=== PATIENT | female | born 1975 | race African-American/Black ===

== ENCOUNTER 2018-11-15 08:44 | Emergency (ER) | payer BC ==
[2018-11-15] MEDS ORDERED: FAMOTIDINE 20 MG TAB ONE (09:34)
[2018-11-15] MEDS ORDERED: METHYLPREDNISOLONE 125 MG INJ ONE (09:34)
[2018-11-15] MEDS ORDERED: DIPHENHYDRAMINE 25 MG TAB/CAP ONE (09:34)
--- NOTE | 2018-11-15 09:53 | ER ---
Nurse's Notes [facility] Name: Ja Karimi Age: 43 yrs Sex: Female : 1975 Arrival Date: 11/15/2018 Time: 08:46 Bed 7 Private MD: Diagnosis: Allergy, unspecified Presentation: 11/15 08:55 Presenting complaint: Patient states: rash to bilateral upper and lower extremities ss with facial swelling that began yesterday. Pt reports today the rash has gone away, but she still has swelling in her face. Pt reports she completed a course of Bactrim 2 days ago. Transition of care: patient was not received from another setting of care. Onset of symptoms was November 14, 2018. Risk Assessment: Do you want to hurt yourself or someone else? Patient reports no desire to harm self or others. Initial Sepsis Screen: Does the patient meet any 2 criteria? No. Patient's initial sepsis screen is negative. Does the patient have a suspected source of infection? No. Patient's initial sepsis screen is negative. Care prior to arrival: None. 08:55 Method Of Arrival: Ambulatory ss 08:55 Acuity: ARACELI 3 ss Historical: - Allergies: 08:57 No Known Allergies; ss - Home Meds: 08:57 None [Active]; ss - PMHx: 08:57 None; ss - PSHx: 08:57 None; ss - Immunization history:: Adult Immunizations up to date. - Social history:: Smoking status: Patient/guardian denies using tobacco. - Ebola Screening: : Patient denies exposure to infectious person Patient denies travel to an Ebola-affected area in the 21 days before illness onset. Screenin:55 Abuse screen: Denies threats or abuse. Denies injuries from another. Nutritional sv screening: No deficits noted. Tuberculosis screening: No symptoms or risk factors identified. Fall Risk None identified. Assessment: 08:56 General: Appears in no apparent distress. uncomfortable, slender, well groomed, well sv developed, Behavior is calm, cooperative, appropriate for age. Neuro: Level of Consciousness is awake, alert, obeys commands, Oriented to person, place, time, situation, Moves all extremities. Full function Gait is steady, Speech is normal. Respiratory: Respiratory effort is even, unlabored, Respiratory pattern is regular, symmetrical. EENT: Lid(s) swelling noted bilaterally. Derm: Skin is pink, warm \T\ dry. Musculoskeletal: Range of motion: intact in all extremities, Swelling present in right eye, left eye and mouth. Vital Signs: 08:57 BP 114 / 50; Pulse 67; Resp 16; Temp 99.3(TE); Pulse Ox 100% on R/A; Weight 54.43 kg; ss Height 5 ft. 0 in. (152.40 cm); Pain 0/10; 08:57 Body Mass Index 23.44 (54.43 kg, 152.40 cm) ED Course: 08:46 Patient arrived in ED. rg4 08:55 Bruna Caldera, RN is Primary Nurse. sv 08:55 Arm band placed on. sv 08:55 Patient has correct armband on for positive identification. Bed in low position. Call sv light in reach. Door closed. Head of bed elevated. 08:56 Triage completed. ss 08:56 Jacoby Alfaro MD is Attending Physician. kdr 08:57 Awaiting ED provider evaluation. sv Administered Medications: 09:35 Drug: Benadryl 25 mg Route: PO; ss 09:35 Drug: Pepcid 20 mg Route: PO; ss 09:35 Drug: SOLU-Medrol 125 mg Route: IM; Site: right gluteus; ss 09:42 CANCELLED (Other Intervention Used): SOLU-Medrol 125 mg IVP once ss Outcome: 09:52 Discharge ordered by . kdr 10:09 Patient left the ED. sg Signatures: Bruna Caldera RN RN Jd Fish RN RN Jacoby Alfaro MD MD [facility] Amy Danielle RN RN Ruby Stiles rg4
--- NOTE | 2018-11-15 09:53 | EDPHYS ---
Physician Documentation [facility] Name: Ja Karimi Age: 43 yrs Sex: Female : 1975 Arrival Date: 11/15/2018 Time: 08:46 Bed 7 Private MD: ED Physician Jacoby Alfaro HPI: 11/15 09:04 This 43 yrs old Black Female presents to ER via Ambulatory with complaints of Lips kdr Swelling. 09:04 The patient presents with diffuse swelling, itching, rash, swelling of the lips. Onset: kdr The symptoms/episode began/occurred last night. Associated signs and symptoms: Pertinent positives:. Possible causes: antibiotics, Bactrim, The patient just finished a seven day course of Bactrim for UTI - had a full days yesterday. At home the patient or guardian has treated the symptoms with Benadryl. Severity of symptoms: At their worst the symptoms were mild in the emergency department the symptoms are worse. The patient has not experienced similar symptoms in the past. The patient has not recently seen a physician. Historical: - Allergies: 08:57 No Known Allergies; ss - Home Meds: 08:57 None [Active]; ss - PMHx: 08:57 None; ss - PSHx: 08:57 None; ss - Immunization history:: Adult Immunizations up to date. - Social history:: Smoking status: Patient/guardian denies using tobacco. - Ebola Screening: : Patient denies exposure to infectious person Patient denies travel to an Ebola-affected area in the 21 days before illness onset. ROS: 09:04 Constitutional: Negative for fever, chills, and weight loss, Eyes: Negative for injury, kdr pain, redness, and discharge, ENT: Negative for injury, pain, and discharge, Neck: Negative for injury, pain, and swelling, Cardiovascular: Negative for chest pain, palpitations, and edema, Respiratory: Negative for shortness of breath, cough, wheezing, and pleuritic chest pain, Abdomen/GI: Negative for abdominal pain, nausea, vomiting, diarrhea, and constipation, Back: Negative for injury and pain, : Negative for injury, bleeding, discharge, and swelling, MS/Extremity: Negative for injury and deformity, Neuro: Negative for headache, weakness, numbness, tingling, and seizure activity. Psych: Negative for depression, anxiety, suicide ideation, homicidal ideation, and hallucinations, Endocrine: Negative for neck swelling, polydipsia, polyuria, polyphagia, and marked weight changes, Hematologic/Lymphatic: Negative for swollen nodes, abnormal bleeding, and unusual bruising. 09:04 Skin: Positive for rash. Exam: 09:04 Constitutional: This is a well developed, well nourished patient who is awake, alert, kdr and in no acute distress. Head/Face: Normocephalic, atraumatic. The patient does have swelling to the left side her face - upper and lower including lips. Eyes: Pupils equal round and reactive to light, extra-ocular motions intact. Lids and lashes normal. Conjunctiva and sclera are non-icteric and not injected. Cornea within normal limits. Periorbital areas with no swelling, redness, or edema. Neck: Trachea midline, no thyromegaly or masses palpated, and no cervical lymphadenopathy. Supple, full range of motion without nuchal rigidity, or vertebral point tenderness. No Meningismus. Chest/axilla: Normal chest wall appearance and motion. Nontender with no deformity. No lesions are appreciated. Cardiovascular: Regular rate and rhythm with a normal S1 and S2. No gallops, murmurs, or rubs. Normal PMI, no JVD. No pulse deficits. Respiratory: Lungs have equal breath sounds bilaterally, clear to auscultation and percussion. No rales, rhonchi or wheezes noted. No increased work of breathing, no retractions or nasal flaring. Abdomen/GI: Soft, non-tender, with normal bowel sounds. No distension or tympany. No guarding or rebound. No evidence of tenderness throughout. Back: No spinal tenderness. No costovertebral tenderness. Full range of motion. MS/ Extremity: Pulses equal, no cyanosis. Neurovascular intact. Full, normal range of motion. Neuro: Awake and alert, GCS 15, oriented to person, place, time, and situation. Cranial nerves II-XII grossly intact. Motor strength 5/5 in all extremities. Sensory grossly intact. Cerebellar exam normal. Normal gait. Psych: Awake, alert, with orientation to person, place and time. Behavior, mood, and affect are within normal limits. 09:04 Neck: No stridor. 09:04 Skin: rash a mild rash is noted, rash can be described as macular, Largely resolved at the time of exam - but itchy and rough - typical drug rash appearance. Vital Signs: 08:57 BP 114 / 50; Pulse 67; Resp 16; Temp 99.3(TE); Pulse Ox 100% on R/A; Weight 54.43 kg; ss Height 5 ft. 0 in. (152.40 cm); Pain 0/10; 08:57 Body Mass Index 23.44 (54.43 kg, 152.40 cm) ss MDM: 09:52 Patient medically screened. kdr 09:56 Data reviewed: vital signs, nurses notes, lab test result(s). Counseling: I had a kdr detailed discussion with the patient and/or guardian regarding: the historical points, exam findings, and any diagnostic results supporting the discharge/admit diagnosis, radiology results, the need for outpatient follow up. Administered Medications: 09:35 Drug: Benadryl 25 mg Route: PO; ss 09:35 Drug: Pepcid 20 mg Route: PO; ss 09:35 Drug: SOLU-Medrol 125 mg Route: IM; Site: right gluteus; ss 09:42 CANCELLED (Other Intervention Used): SOLU-Medrol 125 mg IVP once ss Disposition: 11/15/18 09:52 Discharged to Home. Impression: Allergy, unspecified. - Condition is Stable. - Discharge Instructions: Allergies, Svqa-vn-Wter. - Prescriptions for Benadryl 25 mg Oral Capsule - take 1 capsule by ORAL route every 6 hours As needed; 30 tablet. Pepcid 20 mg Oral Tablet - take 1 tablet by ORAL route every 12 hours for 5 days; 10 tablet. Medrol (Harjit) 4 mg Oral Tablets, Dose Pack - take 1 tablet by ORAL route as directed - follow package instructions; 1 packet. - Work release form, Medication Reconciliation Form, Thank You Letter form. - Follow up: Private Physician; When: 2 - 3 days; Reason: If symptoms return, Further diagnostic work-up, Recheck today's complaints, Continuance of care, Re-evaluation by your physician. - Problem is new. - Symptoms have improved. - Notes: Be careful with Sulfa drugs/Bactrim Signatures: Jd Fish RN RN Jacoby Alfaro MD MD [facility] Amy Danielle RN RN ss Corrections: (The following items were deleted from the chart) 09:42 09:04 SOLU-Medrol 125 mg IVP once ordered. kdr ss 10:09 09:52 11/15/2018 09:52 Discharged to Home. Impression: Allergy, unspecified. Condition sg is Stable. Forms are Medication Reconciliation Form, Thank You Letter, Antibiotic Education, Prescription Opioid Use. Follow up: Private Physician; When: 2 - 3 days; Reason: If symptoms return, Further diagnostic work-up, Recheck today's complaints, Continuance of care, Re-evaluation by your physician. Problem is new. Symptoms have improved. kdr
[2018-11-15 10:21] VITALS: BP 114/50; TEMP 99.3; O2SAT 100
== END 2018-11-15 10:09 | disposition home or self-care (01) ==
LOC: ER 08:44
DX: R21 Rash and other nonspecific skin eruption (principal); Z91.09 Other allergy status, other than to drugs and biological substances
CPT/HCPCS: 96372; 99283; J2930

== ENCOUNTER 2019-05-27 13:10 | Emergency (ER) | payer BC, SELFPAY ==
--- OUTSIDE RECORDS SUMMARY | 2019-05-27 13:13 | XMS REPORT ---
:1975 Author Organization [employer] Care Team Providers Name Role Phone Tiffani Varela Provider Role Unavailable Allergies No Known Allergies Problems Problem Type Condition Code Onset Dates Condition Status Assessment Urinary tract infection, site not N39.0 Active specified Assessment Hematuria, unspecified R31.9 Active Medications Medication Code System Code Instructions Start Date End Date Status Dosage Bactrim [facility] [id number] 800-160 MG Orally November 05, November 12, Active 1 tablet Twice a day 2018 2018 Results No Known Results Summary Purpose [employer] Submission
--- OUTSIDE RECORDS SUMMARY | 2019-05-27 13:13 | XMS REPORT ---
:1975 Author Organization [employer] Care Team Providers Name Role Phone Ramon Tomas Provider Role Unavailable Allergies No Known Allergies Problems Problem Type Condition Code Onset Dates Condition Status Assessment Asymptomatic microscopic hematuria R31.21 Active Medications No Known Medications Results No Known Results Summary Purpose [employer] Submission
--- OUTSIDE RECORDS SUMMARY | 2019-05-27 13:13 | XMS REPORT ---
:1975 Author Organization [employer] Care Team Providers Name Role Phone Tiffani Varela Provider Role Unavailable Allergies, Adverse Reactions, Alerts Substance Reaction Event Type N.K.D.A. Info Not Available Non Drug Allergy Problems Problem Type Condition Code Onset Dates Condition Status Assessment Hematuria, unspecified type R31.9 Active Medications No Known Medications Results No Known Results Summary Purpose [employer] Submission
[2019-05-27] MEDS ORDERED: LIDOCAINE 2% MPF 5 ML VIAL ONE (14:26)
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
[2019-05-27] MEDS ORDERED: TRAMADOL HCL 50 MG TAB ONE (16:01)
[2019-05-27 16:30] VITALS: BP 111/64; TEMP 98.1; O2SAT 99
== END 2019-05-27 16:23 | disposition home or self-care (01) ==
LOC: ER 13:10
PROC: 0CQ1XZZ Repair Lower Lip, External Approach (ICD-10-PCS; principal; 2019-05-27)
DX: S00.531A Contusion of lip, initial encounter (principal); V43.52XA Car driver injured in collision with other type car in traffic accident, initial encounter; Y93.89 Activity, other specified; Y92.410 Unspecified street and highway as the place of occurrence of the external cause
CPT/HCPCS: 99284

== ENCOUNTER 2019-06-02 13:25 | Emergency (ER) | payer SELFPAY ==
--- OUTSIDE RECORDS SUMMARY | 2019-06-02 13:27 | XMS REPORT ---
:1975 Author Organization eClinicalWorks Care Team Providers Name Role Phone Tiffani Varela Provider Role Unavailable Allergies No Known Allergies Problems Problem Type Condition Code Onset Dates Condition Status Assessment Urinary tract infection, site not N39.0 Active specified Assessment Hematuria, unspecified R31.9 Active Medications Medication Code System Code Instructions Start Date End Date Status Dosage Bactrim DS [facility] [id number] 800-160 MG Orally November 05, November 12, Active 1 tablet Twice a day 2018 2018 Results No Known Results Summary Purpose eClinicalWorks Submission
--- OUTSIDE RECORDS SUMMARY | 2019-06-02 13:27 | XMS REPORT ---
:1975 Author Organization eClinicalWorks Care Team Providers Name Role Phone Tiffani Varela Provider Role Unavailable Allergies, Adverse Reactions, Alerts Substance Reaction Event Type N.K.D.A. Info Not Available Non Drug Allergy Problems Problem Type Condition Code Onset Dates Condition Status Assessment Hematuria, unspecified type R31.9 Active Medications No Known Medications Results No Known Results Summary Purpose [employer] Submission
--- NOTE | 2019-06-02 14:31 | RAD REPORT ---
EXAM DESCRIPTION: Gege Desai (2 Views)06/02/2019 2:16 pm CLINICAL HISTORY: Chest pain COMPARISON: None FINDINGS: The lungs appear clear of acute infiltrate. The heart is normal size IMPRESSION: No acute abnormalities displayed
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
[2019-06-02 18:47] VITALS: BP 142/65; TEMP 99; O2SAT 95
== END 2019-06-02 14:54 | disposition home or self-care (01) ==
LOC: ER 13:25
DX: M25.512 Pain in left shoulder (principal); R07.89 Other chest pain; V43.52XA Car driver injured in collision with other type car in traffic accident, initial encounter; Y93.89 Activity, other specified; Y92.410 Unspecified street and highway as the place of occurrence of the external cause
CPT/HCPCS: 71046; 99284

== ENCOUNTER 2023-10-23 16:49 | Emergency (ER) | payer BC, SELFPAY ==
--- OUTSIDE RECORDS SUMMARY | 2023-10-23 16:51 | XMS REPORT | Continuity of Care Document ---
Author Name Unknown Address [address] [facility] [id number] [facility] thconnect Address [address] [facility] [address] [place] [address] Care Team Providers Care Rug Measurer Name Role Phone Bridget Varela Attending Clinician Unavailable [id number] Attending Clinician Unavaila ble [id number] Admitting Clinician Unavaila ble Problems Condition Name Condition Details Condition Category Status Onset Date Resolution Date Last Treatment Date Treating Clinician Comments Source Hematuria, unspecifie d Hematuria, unspecifie d Diagnosis Active [facility] Urinary tract infection, site not specified Urinary tract infection, site not specified Diagnosis Active [facility] Medications Ordered Medication Name Filled Medication Name Start Date Stop Date Current Medication? Ordering Clinician Indication Dosage Frequency Signature (SIG) Comments Components Source Bactrim DS Bactrim DS 2018-11-05 00:00: 00 11-12 00:00 :00 No Tiffani Nichole 1 tablet Comm on [facility] Encounters Start Date/Time End Date/Time Encounter Type Admission Type Attending Clinicians Care Facility Care Department Encounter ID Source 2021-05-29 12:06:55 Outpatient Bridget Varela [facility] [id number] [facility] 2023-03-03 00:00:00 2023-03-03 00:00:00 Outpatient [email or web address] [facility] [id number] [facility] 2018-11-05 15:19:00 2018-11-05 15:19:00 [facility] [id number] [facility] 2018-11-01 16:00:00 2018-11-01 16:00:00 Outpatient [facility] [id number] [facility] 2018-08-18 16:00:00 2018-08-18 16:00:00 Outpatient [facility] [id number] [facility]
--- NOTE | 2023-10-23 20:49 | ER ---
Nurse's Notes [facility] Name: Ja Karimi Age: 48 yrs Sex: Female : 1975 Arrival Date: 10/23/2023 Time: 16:49 Bed IW10 Private MD: Diagnosis: Rash and other nonspecific skin eruption Presentation: 10/22 17:29 Chief complaint: Patient states: she thinks she is having an allergic reaction to a ap3 detergent as she has developed a rash in her pelvic area that is not going away. patient reports having the rash for approx 2-3 weeks. Coronavirus screen: At this time, the client does not indicate any symptoms associated with coronavirus-19. Ebola Screen: No symptoms or risks identified at this time. Initial Sepsis Screen: Does the patient meet any 2 criteria? No. Patient's initial sepsis screen is negative. Does the patient have a suspected source of infection? No. Patient's initial sepsis screen is negative. Risk Assessment: Do you want to hurt yourself or someone else? Patient reports no desire to harm self or others. Onset of symptoms is unknown. 17:29 Method Of Arrival: Ambulatory ap3 17:29 Acuity: ARACELI 4 ap3 Triage Assessment: 17:30 General: Appears in no apparent distress. Behavior is calm, cooperative, appropriate ap3 for age. Pain: Complains of pain in pelvis. Neuro: Level of Consciousness is awake, alert, obeys commands, Oriented to person, place, time, situation, Appropriate for age. Cardiovascular: Patient's skin is warm and dry. Respiratory: Airway is patent Respiratory effort is even, unlabored, Respiratory pattern is regular, symmetrical. Derm: Reports rash. Historical: - Allergies: 17:30 No Known Allergies; ap3 - PMHx: 17:30 None; ap3 - Immunization history:: Client reports receiving the 2nd dose of the Covid vaccine. - Infectious Disease History:: Denies. - Social history:: Smoking status: Patient denies any tobacco usage or history of. Screenin:30 [facility] ED Fall Risk Assessment (Adult) History of falling in the last 3 months, ap3 including since admission No falls in past 3 months (0 pts) Confusion or Disorientation No (0 pts) Intoxicated or Sedated No (0 pts) Impaired Gait No (0 pts) Mobility Assist Device Used No (0 pt) Altered Elimination No (0 pt) Score/Fall Risk Level 0 - 2 = Low Risk Oriented to surroundings, Maintained a safe environment, Educated pt \T\ family on fall prevention, incl call for assistance when getting out of bed, Assessed \T\ reinforced patient's understanding of fall precautions, Provided non-skid footwear, Hourly rounding (assess needs \T\ fall precautionary measures) done, Used ambulatory aids as needed (educated on \T\ assisted with), Used gait belt as appropriate. Abuse screen: Denies threats or abuse. Nutritional screening: No deficits noted. Tuberculosis screening: No symptoms or risk factors identified. Vital Signs: 17:29 BP 140 / 80; Pulse 65; Resp 18; Temp 97.7; Pulse Ox 100% ; Weight 54.43 kg; Height 5 ap3 ft. 0 in. ; 17:29 Body Mass Index 23.44 (54.43 kg, 152.4 cm) ap3 ED Course: 16:56 Patient arrived in ED. ec2 17:02 [facility] Valencia [facility]. cp 17:02 Simon Burgos MD is Attending Physician. cp 17:30 Triage completed. ap3 17:31 Arm band placed on right wrist. ap3 19:10 No provider procedures requiring assistance completed. Patient did not have IV access vc1 during this emergency room visit. Administered Medications: No medications were administered Medication: 17:31 VIS not applicable for this client. ap3 Outcome: 19:10 Eloped from waiting room, post triage evaluation and consult. Seen by provider in vc1 triage. Time discovered patient gone: October 23, 2023 at 19:10 19:10 Condition: stable 19:10 Discharge instructions given to Pt left ER before given discharge paperwork vc1 19:10 Patient left the ED. vc1 Signatures: Ever Valencia PA PA cp Prokisch, Amanda, RN RN ap3 Analy Siddiqui RN RN vc1 Simno Burgos MD MD ec2 Corrections: (The following items were deleted from the chart) 21:26 21:26 Patient left the ED. vc1 vc1
--- NOTE | 2023-10-23 20:49 | EDPHYS ---
Physician Documentation [facility] Name: Ja Karimi Age: 48 yrs Sex: Female : 1975 Arrival Date: 10/23/2023 Time: 16:49 Bed IW10 Private MD: ED Physician Simon Burgos HPI: 10/22 17:35 This 48 yrs old Black Female presents to ER via Ambulatory with complaints of Rash. cp 17:35 The patient's rash thought to be caused by an unknown cause. The rash is located on the cp left elbow and right elbow and pelvic area. The rash can be described as itchy. 17:35 Associated signs and symptoms: Pertinent negatives: difficulty breathing, fever, Pain. cp 17:35 Treatment given at home: OTC lotion/cream steroid and antibiotic cream. cp Historical: - Allergies: 17:30 No Known Allergies; ap3 - PMHx: 17:30 None; ap3 - Immunization history:: Client reports receiving the 2nd dose of the Covid vaccine. - Infectious Disease History:: Denies. - Social history:: Smoking status: Patient denies any tobacco usage or history of. ROS: 17:40 Constitutional: Negative for body aches, chills, fever, cp 17:40 Skin: Positive for rash, of the pelvis and left elbow and right elbow, 17:40 All other systems are negative, cp Exam: 17:43 Constitutional: The patient appears in no acute distress, alert, awake, comfortable, cp well developed, well nourished, 17:43 Head/Face: Normocephalic, atraumatic. cp 17:43 Chest/axilla: Inspection: normal, 17:43 Cardiovascular: Rate: normal, 17:43 Respiratory: the patient does not display signs of respiratory distress, Respirations: normal, no use of accessory muscles, no retractions, labored breathing, is not present, Vital Signs: 17:29 BP 140 / 80; Pulse 65; Resp 18; Temp 97.7; Pulse Ox 100% ; Weight 54.43 kg; Height 5 ap3 ft. 0 in. ; 17:29 Body Mass Index 23.44 (54.43 kg, 152.4 cm) ap3 MDM: 20:48 Patient medically screened. cp Administered Medications: No medications were administered Disposition Summary: 10/23/23 20:48 Eloped Notes: Disposition: after being seen by provider cp Reason: unknown cp Problem: new cp Symptoms: are unchanged cp Condition: Stable cp Diagnosis - Rash and other nonspecific skin eruption cp Followup: cp - With: Private Physician - When: 2 - 3 days - Reason: Recheck today's complaints Addendum: 10/25/2023 05:48 I was immediately available for consultation during this patient's visit. I did not e c2 personally see the patient or discuss the patient with the THO. . Signatures: Ever Valencia PA PA cp Prokisch, Amanda, RN RN ap3 Simon Burgos MD MD ec2 Corrections: (The following items were deleted from the chart) 10/23 21:12 10/22 19:30 Skin: Positive for rash, of the pelvis and left elbow and right elbow, cp cp 10/23 21:12 10/22 19:30 Constitutional: Negative for body aches, chills, fever, cp cp
[2023-10-23 23:04] VITALS: BP 140/80; TEMP 97.7; O2SAT 100
== END 2023-10-23 21:26 | disposition left against medical advice (07) ==
LOC: ER 16:49
DX: R21 Rash and other nonspecific skin eruption (principal)
CPT/HCPCS: 99282